=== PATIENT | female | born 1965 | race Caucasian/White ===

== ENCOUNTER 2016-04-02 08:46 | Day surgery (SDC) | payer BC ==
[~2016-04-02] VITALS: Ht 165.1 cm; Wt 89.2 kg
[2016-04-02] VITALS (11 sets, daily range): BP systolic 110–120; BP diastolic 64–72; PULSE 64–88; RESP 12–16; Ht 165.1 cm; Wt 89.2 kg
[~2016-04-02 08:46] MED LIST: CEFAZOLIN 2 GM/50 ML (PMX) 50 ML IVPB ONE; SOD CHLORIDE 0.9% 1,000 ML IV SCH
[2016-04-02] MEDS ORDERED: morphine (1 MG/ML) 10ML SYRINGE IV PRN ×2 (11:00)
[2016-04-02] MEDS ORDERED: DIPHENHYDRAMINE 50 MG INJ IV PRN (11:00)
[2016-04-02] MEDS ORDERED: MEPERIDINE 25 MG INJ IV PRN (11:00)
[2016-04-02] MEDS ORDERED: HYDROmorphONE (0.2 MG/ML) 10ML SYG IV PRN ×2 (11:00)
[2016-04-02] MEDS ORDERED: ONDANSETRON 4 MG INJ IV PRN (11:00)
[2016-04-02] MEDS ORDERED: FENTAnyl 50 MCG/ML VIAL IV PRN (11:00)
[2016-04-02] MEDS ORDERED: MIDAZOLAM 1 MG/ML 2 ML INJ ONE (11:03)
[2016-04-02] MEDS ORDERED: BUPIVACAINE 0.25% (MPF) 10 ML 10 ML VIAL ONE (11:19)
[2016-04-02] MEDS ORDERED: LEVO25TA53 PO (11:25)
[2016-04-02] MEDS ORDERED: METF500T4 PO (11:25)
[2016-04-02] MEDS ORDERED: AMOX1TAB10 PO (11:25)
[2016-04-02] MEDS ORDERED: PROPOFOL 20 ML ONE (11:44)
[2016-04-02] MEDS ORDERED: LIDOCAINE 2% (SDV) 5 ML INJ ONE (11:44)
[2016-04-02] MEDS ORDERED: ONDANSETRON 4 MG INJ ONE ×2 (11:44→12:00)
[2016-04-02] MEDS ORDERED: ROCURONIUM 50 MG INJ ONE (11:44)
[2016-04-02] MEDS ORDERED: CEFAZOLIN 1 GM INJ ONE (12:00)
[2016-04-02] MEDS ORDERED: NEOSTIGMINE 3 MG/3 ML SYRINGE ONE (12:00)
[2016-04-02] MEDS ORDERED: HYDROCODONE/APAP (5/325) TAB PO ONE (12:00)
[2016-04-02] MEDS ORDERED: GLYCOPYRROLATE 1 MG INJ ONE (12:00)
--- NOTE | 2016-04-02 14:27 | OPR ---
DATE OF OPERATION: 04/02/2016 INDICATION: This is a 50-year-old female with symptomatic gallstones. She requests surgical excisi on of her gallbladder. Risks, alternatives, benefits, and personnel were discussed with the patient . Patient expressed understanding and consents to the operation. PREOPERATIVE DIAGNOSIS: Symptomatic gallstones. POSTOPERATIVE DIAGNOSIS: Symptomatic gallstones. OPERATION: Laparoscopic cholecystectomy. SURGEON: MD Meaghan SPECIMENS: Gallbladder. COMPLICATIONS: None. ANESTHESIA: General. PROCEDURE: The patient was taken to the OR and prepped and draped in the usual sterile fashion. Figueroa rgical timeout was performed. IV antibiotics were given. Supraumbilical midline incision is made w ith a 15 blade. Dissection cautery was carried down to the fascia which was divided with curved May o scissors. A 0 Vicryl stitch was placed into the fascia. Balloon Marion trocar is introduced. Pn eumoperitoneum established. Midepigastric 12 mm optical trocar and right upper quadrant and right u pper flank 5 mm optical trocars are placed under direct visualization. Upon initial inspection, the re were some adhesions to the gallbladder. The cystic duct was identified. The critical view was e stablished. The cystic duct and cystic artery were divided using a 35 mm Curtis vascular load stap ler. Additional clips were placed for reinforcement. The gallbladder was taken off the gallbladder bed. There was good hemostasis. Gallbladder was retrieved using EndoCatch bag. There was minimal spillage and suction irrigation was used. Ports were removed under direct visualization, 0 Vicryl U-stitch was tied down. Skin was closed using skin gypsy. Local anesthesia was injected. Dry dr essings were applied. Dictated By: DAXA HUTSON/JOHANA Conf#: [id number] DID#: [id number]
== END 2016-04-02 14:10 | disposition home or self-care (01) ==
LOC: SDS 08:46
PROVIDERS: ATTEND Surgery
DX: K80.10 Calculus of gallbladder with chronic cholecystitis without obstruction (principal); E03.9 Hypothyroidism, unspecified; E11.9 Type 2 diabetes mellitus without complications; E66.01 Morbid (severe) obesity due to excess calories; Z68.32 Body mass index [BMI] 32.0-32.9, adult; E78.5 Hyperlipidemia, unspecified
CPT/HCPCS: 47562; 82962; 84703; 88304; J0690; J1170; J2175; J2250; J2405; J2710; J3010; Z7512; Z7610

== ENCOUNTER 2016-08-02 08:25 | Observation (INO) | payer BC ==
[~2016-08-02] VITALS: Ht 165.1 cm; Wt 90.0 kg
[2016-08-02] VITALS (38 sets, daily range): BP systolic 89–131; BP diastolic 48–81; PULSE 60–100; RESP 11–23; Ht 165.1 cm; Wt 90.0 kg
[~2016-08-02 08:25] MED LIST changes: +AMOX1TAB10 PO; -CEFAZOLIN 2 GM/50 ML (PMX) 50 ML IVPB ONE; +LEVO25TA53 PO; +METF500T4 PO; -SOD CHLORIDE 0.9% 1,000 ML IV SCH
[2016-08-02] MEDS ORDERED: METF500T4 PO (09:01)
[2016-08-02] MEDS ORDERED: SOD CHLORIDE 0.9% 1,000 ML IV ONE (09:30)
[2016-08-02] MEDS ORDERED: CEFAZOLIN 2 GM/50 ML (PMX) 50 ML IVPB ONE (09:30)
[2016-08-02] MEDS ORDERED: BUPIVACAINE 0.25% (MPF) 30 ML INJ ONE (13:25)
[2016-08-02] MEDS ORDERED: FENTAnyl 50 MCG/ML VIAL ONE (13:36)
[2016-08-02] MEDS ORDERED: MIDAZOLAM 1 MG/ML 2 ML INJ ONE (13:36)
[2016-08-02] MEDS ORDERED: ROCURONIUM 50 MG INJ ONE ×2 (13:36→14:34)
[2016-08-02] MEDS ORDERED: SUCCINYLCHOLINE CHLORIDE 100 MG/5 ML SYG IV ONE (13:36)
[2016-08-02] MEDS ORDERED: LIDOCAINE 2% (SDV) 5 ML INJ ONE (13:36)
[2016-08-02] MEDS ORDERED: PROPOFOL 20 ML ONE (13:36)
[2016-08-02] MEDS ORDERED: ONDANSETRON 4 MG INJ ONE (13:47)
[2016-08-02] MEDS ORDERED: FAMOTIDINE 20 MG INJ ONE (13:47)
[2016-08-02] MEDS ORDERED: CEFAZOLIN 1 GM INJ ONE (13:52)
[2016-08-02] MEDS ORDERED: DIPHENHYDRAMINE 50 MG INJ IV PRN ×2 (14:00→15:00)
[2016-08-02] MEDS ORDERED: PROCHLORPERAZINE 10 MG INJ IV PRN (14:00)
[2016-08-02] MEDS ORDERED: MEPERIDINE 25 MG INJ IV PRN (14:00)
[2016-08-02] MEDS ORDERED: ONDANSETRON 4 MG INJ IV PRN (14:00)
[2016-08-02] MEDS ORDERED: OXYCODONE/ACETAMINOPHEN (5/325) TAB PO PRN (14:00)
[2016-08-02] MEDS ORDERED: FENTAnyl 50 MCG/ML VIAL IV PRN (14:00)
[2016-08-02] MEDS ORDERED: HYDROmorphONE (0.2 MG/ML) 10ML SYG IV PRN (14:00)
[2016-08-02] MEDS ORDERED: NEOSTIGMINE 3 MG/3 ML SYRINGE ONE ×2 (14:16→14:49)
[2016-08-02] MEDS ORDERED: GLYCOPYRROLATE 0.4 MG INJ ONE (14:16)
[2016-08-02] MEDS ORDERED: HYDROmorphONE 2 MG/ML SYG ONE (14:35)
[2016-08-02] MEDS: SOD CHLORIDE 0.9% 1,000 ML IV SCH ×2 (14:59→22:26)
--- NOTE | 2016-08-02 14:59 | OPR ---
Date/Time of Note Date/Time of Note DATE: 08/02/16 TIME: 14:58 Operative Report Procedure Date: Aug 02, 2016 Preoperative Diagnosis recurrent incarcerated incisional hernia Postoperative Diagnosis same Operation Performed incarcerated recurrent incisional hernia repair intraabdominal mesh implantation omental harvest localized adjacent tissue transfer with the use of skin flaps 76 sq cm defect Ashley PEREIRA Aug 02, 2016 14:59
[2016-08-02] MEDS ORDERED: HYDROmorphONE 1 MG/ML SYG IV PRN ×2 (15:00)
[2016-08-02] MEDS ORDERED: NALOXONE (0.4 MG/ML) INJ IV PRN (15:00)
[2016-08-02] MEDS ORDERED: HYDROCODONE/APAP (5/325) TAB PO PRN (15:00)
--- NOTE | 2016-08-02 15:35 | OPR ---
DATE OF OPERATION: 08/02/2016 INDICATION: This is a 51-year-old female with a recurrent incarcerated incisional hernia. She requ ests surgical repair. Risks, alternatives, benefits of the procedure were discussed with the patien t. Patient expressed understanding and consents to the operation. PREOPERATIVE DIAGNOSIS: Recurrent incarcerated incisional hernia. POSTOPERATIVE DIAGNOSIS: Recurrent incarcerated incisional hernia. OPERATION PERFORMED: 1. Recurrent incarcerated incisional [place] [address]. 2. Implantation of mesh. CPT code 62660. 3. Omental flap intra-abdominal, CPT codes 563480. 4. Localized adjacent tissue transfer with the use of skin flaps of 72 square cm defect. SURGEON: Edward Harding MD SPECIMEN: Excess skin and hernia sac contents. COMPLICATIONS: None. ANESTHESIA: General. PROCEDURE: The patient was taken to the OR and prepped and draped in the usual sterile fashion. Figueroa rgical timeout was performed. IV antibiotics were given. An elliptical incision was made with a 10 blade over the prior cicatrix. Dissection cautery was carried down to the hernia. There was a lar ge hernia sac which was also resected. The incarcerated hernia was then reduced. Large hernia defe ct was identified. There was lysis of adhesions from the intraabdominal area around the hernia as i t showed chronic inflammation and adhesive response. The fascial edges were freed up approximately 4 to 5 cm in all directions. A piece of omentum was then plicated to the anterior abdominal wall to prevent any kind of bowel intrusion into the hernia defect with interrupted 3-0 Vicryl. An underla y mesh with 15 x [address] mesh was fashioned, first sized with approximately 4 to 5 cm o f underlay coverage in all directions. This was secured in place with interrupted #1 Prolene in all directions circumferentially around the hernia defect. The fascial edges were then reapproximated with 0 PDS loop from superior to inferior and inferior to superior enclosed in the midline. The wou nd was irrigated with irrigation and Betadine. Due to the large tissue defect, multilayer closure w ith interrupted 3-0 Vicryl and skin gypsy was performed to close the large hernia skin sac defect that was formed from the resection. Local anesthesia was injected and dry dressings were applied. Dictated By: EDWARD HARDING MD SB/JOHANA Conf#: [id number] [facility]#: [id number]
[2016-08-02] MEDS: HYDROmorphONE 0.2 MG/ML PCA IV SCH (15:58)
[2016-08-02] MEDS: CEFAZOLIN 2 GM/50 ML (PMX) 50 ML IVPB SCH ×2 (16:00→22:26)
[2016-08-02 16:42] LABS: ADD SCAN DIFF NO
[2016-08-02 16:45] LABS: BASOPHILS % 0.3 % (0.0-2.0); EOSINOPHILS # 0.1 10^3/ul (0.0-0.5); EOSINOPHILS % 0.9 % (0.0-7.0); HEMATOCRIT 35.6 % (37.0-47.0); HEMOGLOBIN 11.5 g/dl (12.0-16.0); LYMPHOCYTES # 1.7 10^3/ul (0.8-2.9); LYMPHOCYTES % 14.8 % (15.0-51.0); MEAN CORPUSCULAR HEMOGLOBIN 24.4 pg (29.0-33.0); MEAN CORPUSCULAR HGB CONC 32.3 g/dl (32.0-37.0); MEAN CORPUSCULAR VOLUME 75.4 fl (82.0-101.0); MEAN PLATELET VOLUME 10.4 fl (7.4-10.4); MONOCYTE # 0.4 10^3/ul (0.3-0.9); MONOCYTES % 3.9 % (0.0-11.0); NEUTROPHILS % 79.7 % (39.0-77.0); PLATELET COUNT 245 10^3/UL (140-415); RED BLOOD COUNT 4.72 10^6/ul (4.20-5.40); RED CELL DISTRIBUTION WIDTH 12.8 % (11.5-14.5); WHITE BLOOD COUNT 11.3 10^3/ul (4.8-10.8)
[2016-08-02] MEDS ORDERED: DEXTROSE 50% 50 ML SYRINGE IV PRN ×2 (17:00)
[2016-08-02] MEDS ORDERED: GLUCOSE GEL 15 GRAM TUBE BUCCAL PRN (17:00)
[2016-08-02] MEDS ORDERED: GLUCAGON 1 MG INJ IM PRN (17:00)
[2016-08-02] MEDS ORDERED: GLUCOSE GEL 15 GRAM TUBE PO PRN ×2 (17:00)
[2016-08-02] MEDS ORDERED: INSULIN ASPART [NOVOLOG] 3 ML PEN SC SCH (17:00)
[2016-08-02 17:06] LABS: ALBUMIN 3.9 g/dl (3.3-4.9); ALBUMIN/GLOBULIN RATIO 1.77; BILIRUBIN,INDIRECT 0.1 mg/dl (0-1.1); BILIRUBIN,TOTAL 0.1 mg/dl (0.2-1.3); CREATININE 0.44 mg/dl (0.44-1.00); POTASSIUM 3.8 mmol/L (3.5-5.1); TOTAL PROTEIN 6.1 g/dl (6.1-8.1)
[2016-08-02 17:09] LABS: CALCIUM 8.1 mg/dl (8.4-10.2)
--- NOTE | 2016-08-02 17:34 | HP ---
DATE OF ADMISSION: 08/02/2016 HISTORY OF PRESENT ILLNESS: The patient is a 51-year-old female with past medical history positive for diabetes and hypothyroidism. The patient was diagnosed with recurrent incarcerated incisional h ernia. The patient was seeing Dr. Harding as an outpatient and patient was brought to the hospital and underwent recurrent incarcerated incisional hernia repair with implantation of mesh. Postoperative ly, the patient is lethargic and cannot provide detailed medical history. The patient is arousable, alert to name and situation. Patient also complains of significant abdominal pain and the patient will be admitted for further evaluation and management. PAST MEDICAL HISTORY: Positive for diabetes and hypothyroidism. PAST SURGICAL HISTORY: Patient is status post laparoscopic cholecystectomy in 03/2016. SOCIAL HISTORY: Patient lives at home with her family, patient denies any tobacco use, denies any a lcohol use and denies any illicit drug use. FAMILY HISTORY: Noncontributory. ALLERGIES: PATIENT HAS NO KNOWN ALLERGIES. HOME MEDICATIONS: 1. Synthroid. 2. Metformin. REVIEW OF SYSTEMS: A 12-point review of systems is negative unless mentioned in the HPI. PHYSICAL ASSESSMENT GENERAL: Well-developed, well-nourished female currently lethargic but easily arousable. Complains of incisional pain. VITAL SIGNS: Temperature is 97.6, pulse is 75, blood pressure 117/66, respiratory rate 16, oxygen s aturation 98% on room air. HEENT: Head is atraumatic, normocephalic. Pupils equal, round, reactive to light and accommodation . Oral mucosa is pink and moist. NECK: Supple, no cervical lymphadenopathy, no thyromegaly. CHEST: Lungs clear bilaterally. No rhonchi, wheezes, rales noted. CARDIOVASCULAR: Normal S1, S2. Regular rhythm and rate. No murmurs, gallops, clicks, rubs noted. ABDOMEN: Status post surgery with intact surgical incision, hypoactive bowel sounds. EXTREMITIES: No edema, clubbing, cyanosis. Pulses equal bilaterally 2+. SKIN: There is no rash, petechiae noted. NEUROLOGIC: Patient is alert to name and situation, moves all extremities. LABORATORY DATA: The patient's glucose is 181. ASSESSMENT AND PLAN: 1. Recurrent incarcerated incisional hernia, status post repair with implantation of mesh. 2. I will continue postoperative antibiotics. Continue [place] and Toradol p.r.n. for pain and Zofra n p.r.n. for nausea. Patient will be also be placed on COMPUTING ARCHITECT Dilaudid. Continue IV fluids. Monitor electrolytes. Continue incentive spirometer q.1h while the patient is awake. Will follow up surgic al recommendation. 3. Diabetes mellitus. Will continue NovoLog per mild algorithm sliding scale. 4. Levothyroxine. Will continue Synthroid. 5. Obesity with BMI of 33. Continue sequential compression device for deep venous thrombosis proph ylaxis. Further recommendations based on clinical course. Plan of care discussed with Dr. Walker . . Dictated By: FORREST LOU CREW FOREMAN for LIONEL WALKER MD SR/NTS Conf#: [id number] DID#: [id number]
[2016-08-02] MEDS: ONDANSETRON 4 MG INJ IV PRN (18:24)
[2016-08-02] MEDS: Insulin NOVOLOG SS MILD Algorithm (NPO/TPN/ENTERAL FEEDS) SC SCH ×2 (22:46→22:48)
[2016-08-02] MEDS: metFORMIN 500 MG TAB PO SCH (22:49)
[2016-08-03 00:21] VITALS: BP 109/60; RESP 18
[2016-08-03] MEDS: Insulin NOVOLOG SS MILD Algorithm (NPO/TPN/ENTERAL FEEDS) SC SCH ×4 (01:11→12:28)
[2016-08-03] MEDS: ONDANSETRON 4 MG INJ IV PRN ×2 (01:15→17:25)
[2016-08-03 04:30] VITALS: BP 113/61; PULSE 86; RESP 18
[2016-08-03 05:38] LABS: ADD SCAN DIFF NO
[2016-08-03 05:40] LABS: BASOPHILS % 0.3 % (0.0-2.0); EOSINOPHILS % 0.1 % (0.0-7.0); HEMATOCRIT 36.1 % (37.0-47.0); HEMOGLOBIN 11.5 g/dl (12.0-16.0); LYMPHOCYTES % 11.4 % (15.0-51.0); MEAN CORPUSCULAR HEMOGLOBIN 24.2 pg (29.0-33.0); MEAN CORPUSCULAR HGB CONC 31.9 g/dl (32.0-37.0); MEAN PLATELET VOLUME 10.7 fl (7.4-10.4); MONOCYTE # 0.5 10^3/ul (0.3-0.9); MONOCYTES % 5.4 % (0.0-11.0); NEUTROPHIL # 7.2 10^3/ul (1.6-7.5); NEUTROPHILS % 82.3 % (39.0-77.0); PLATELET COUNT 262 10^3/UL (140-415); RED BLOOD COUNT 4.75 10^6/ul (4.20-5.40); RED CELL DISTRIBUTION WIDTH 12.9 % (11.5-14.5); WHITE BLOOD COUNT 8.8 10^3/ul (4.8-10.8)
[2016-08-03 06:16] LABS: ALBUMIN 4.1 g/dl (3.3-4.9); ALBUMIN/GLOBULIN RATIO 1.64; BILIRUBIN,INDIRECT 0.4 mg/dl (0-1.1); BILIRUBIN,TOTAL 0.4 mg/dl (0.2-1.3); CALCIUM 8.7 mg/dl (8.4-10.2); CREATININE 0.43 mg/dl (0.44-1.00); POTASSIUM 4.1 mmol/L (3.5-5.1); TOTAL PROTEIN 6.6 g/dl (6.1-8.1)
[2016-08-03] MEDS: LEVOTHYROXINE 25 MCG TAB PO SCH (06:17)
[2016-08-03] MEDS: CEFAZOLIN 2 GM/50 ML (PMX) 50 ML IVPB SCH (06:17)
[2016-08-03] MEDS: metFORMIN 500 MG TAB PO SCH ×2 (07:50→17:25)
[2016-08-03 07:51] VITALS: BP 108/62; RESP 19
[2016-08-03] MEDS: SOD CHLORIDE 0.9% 1,000 ML IV SCH ×2 (12:11→21:57)
[2016-08-03] MEDS: HYDROmorphONE 0.2 MG/ML PCA IV SCH (12:26)
--- NOTE | 2016-08-03 14:26 | PN ---
Date/Time of Note Date/Time of Note DATE: 08/03/16 TIME: 14:25 Assessment/Plan VTE Prophylaxis VTE Prophylaxis Intervention: SCD's Lines/Catheters [facility] Peripheral IV Urinary Cath still in place: No Assessment/Plan Chief Complaint/Hosp Course s/p open incisional hernia Problems: Assessment/Plan d/c today or tomorrow Subjective 24 Hr Interval Summary Free Text/Dictation some emesis yesterday no issues today Exam/Review of Systems Vital Signs Vitals Vital Signs Date Time Temp Pulse Resp B/P Pulse Ox O2 Delivery O2 Flow Rate FiO2 08/03/16 08:00 Nasal Cannula 2.0 08/03/16 07:51 98.5 79 19 108/62 99 Intake and Output 08/02/16 08/02/16 08/03/16 15:00 23:00 07:00 Intake Total 1770 ml 630 ml Output Total 670 ml 800 ml Balance 1100 ml -170 ml Exam c/d/i Results Result Diagram: 08/03/16 0453 08/03/16 0453 Results 24 hrs Laboratory Tests Test 08/02/16 15:20 08/02/16 16:35 08/02/16 21:06 08/02/16 22:36 Bedside Glucose 181 211 235 H White Blood Count 11.3 H Red Blood Count 4.72 Hemoglobin 11.5 L Hematocrit 35.6 L Mean Corpuscular Volume 75.4 L Mean Corpuscular Hemoglobin 24.4 L Mean Corpuscular Hemoglobin Concent 32.3 Red Cell Distribution Width 12.8 Platelet Count 245 Mean Platelet Volume 10.4 Neutrophils % 79.7 H Lymphocytes % 14.8 L Monocytes % 3.9 Eosinophils % 0.9 Basophils % 0.3 Nucleated Red Blood Cells % 0.0 Neutrophils # 9.0 H Lymphocytes # 1.7 Monocytes # 0.4 Eosinophils # 0.1 Basophils # 0.0 Nucleated Red Blood Cells # 0.0 Sodium Level 141 Potassium Level 3.8 Chloride Level 109 Carbon Dioxide Level 25 Anion Gap 11 Blood Urea Nitrogen 10 Creatinine 0.44 Glucose Level 213 Calcium Level 8.1 L Total Bilirubin 0.1 L Direct Bilirubin 0.00 Indirect Bilirubin 0.1 Aspartate Amino Transf (AST/SGOT) 38 Alanine Aminotransferase (ALT/SGPT) 60 Alkaline Phosphatase 79 Total Protein 6.1 Albumin 3.9 Globulin 2.20 Albumin/Globulin Ratio 1.77 Test 08/03/16 01:05 08/03/16 04:46 08/03/16 04:53 08/03/16 08:24 Bedside Glucose 205 165 167 White Blood Count 8.8 # Red Blood Count 4.75 Hemoglobin 11.5 L Hematocrit 36.1 L Mean Corpuscular Volume 76.0 L Mean Corpuscular Hemoglobin 24.2 L Mean Corpuscular Hemoglobin Concent 31.9 L Red Cell Distribution Width 12.9 Platelet Count 262 Mean Platelet Volume 10.7 H Neutrophils % 82.3 H Lymphocytes % 11.4 L Monocytes % 5.4 Eosinophils % 0.1 Basophils % 0.3 Nucleated Red Blood Cells % 0.0 Neutrophils # 7.2 Lymphocytes # 1.0 Monocytes # 0.5 Eosinophils # 0.0 Basophils # 0.0 Nucleated Red Blood Cells # 0.0 Sodium Level 142 Potassium Level 4.1 Chloride Level 105 Carbon Dioxide Level 26 Anion Gap 15 Blood Urea Nitrogen 7 Creatinine 0.43 L Glucose Level 158 Hemoglobin A1c 9.4 H Calcium Level 8.7 Total Bilirubin 0.4 Direct Bilirubin 0.00 Indirect Bilirubin 0.4 Aspartate Amino Transf (AST/SGOT) 39 Alanine Aminotransferase (ALT/SGPT) 62 Alkaline Phosphatase 72 Total Protein 6.6 Albumin 4.1 Globulin 2.50 Albumin/Globulin Ratio 1.64 Test 08/03/16 12:07 Bedside Glucose 187 Medications Medications Current Medications Naloxone HCl (Narcan) 0.2 mg PRN PRN IV DECREASED REPIRATORY RATE; Start at 15:00 Hydromorphone HCl (Dilaudid EMS COORDINATOR) Q4PCA IV Last administered on 08/03/16 12:26 ; Admin Dose 6 MG; Start 08/02/16 at 15:00 Hydromorphone HCl (Dilaudid) 0.4 mg Q4H PRN IV PAIN LEVEL 1-5; Start 08/02/16 at 15:00 Hydromorphone HCl (Dilaudid) 0.6 mg Q4H PRN IV PAIN LEVEL 6-10; Start 08/02/16 at 15:00 Ondansetron HCl (Zofran Inj) 4 mg Q6H PRN IV NAUSEA AND/OR VOMITING Last administered on 08/03/16 01:15; Admin Dose 4 MG; Start 08/02/16 at 15:00 Diphenhydramine HCl 25 mg 25 mg Q6H PRN IV ITCHING; Start 08/02/16 at 15:00 Cefazolin Sodium/ Dextrose (Ancef 2 Gm/50 ml (Pmx)) 50 ml @ 100 mls/hr Q8H IVPB Last administered on 08/03/16 06:17; Admin Dose 100 MLS/HR; Start 08/02/16 at 15:00; Stop 08/03/16 at 14:59 Acetaminophen/ Hydrocodone Bitart ([place] (5/325)) 1 tab Q6H PRN PO PAIN LEVEL 6 -10; Start 08/02/16 at 15:00 Ketorolac Tromethamine 30 mg 30 mg Q6H PRN IV PAIN; Start 08/02/16 at 15:00; Stop 08/05/16 at 14:59 Sodium Chloride (NS) 1,000 ml @ 100 mls/hr Q10H IV Last administered on 12:11; Admin Dose 100 MLS/HR; Start 08/02/16 at 14:59 Miscellaneous Information 1 ea NOTE XX ; Start 08/02/16 at 17:00 Glucose (Glutose) 15 gm Q15M PRN PO DECREASED GLUCOSE; Start 08/02/16 at 17:00 Glucose (Glutose) 22.5 gm Q15M PRN PO DECREASED GLUCOSE; Start 08/02/16 at 17:00 Dextrose (D50w Syringe) 25 ml Q15M PRN IV DECREASED GLUCOSE; Start 08/02/16 at 17:00 Dextrose (D50w Syringe) 50 ml Q15M PRN IV DECREASED GLUCOSE; Start 08/02/16 at 17:00 Glucagon (Glucagen) 1 mg Q15M PRN IM DECREASED GLUCOSE; Start 08/02/16 at 17:00 Glucose (Glutose) 15 gm Q15M PRN BUCCAL DECREASED GLUCOSE; Start 08/02/16 at 17: 00 Ashley PEREIRA Aug 03, 2016 14:26
[2016-08-03] MEDS ORDERED: INSULIN ASPART [NOVOLOG] 3 ML PEN SC SCH (17:25)
[2016-08-03] MEDS: Insulin NOVOLOG SS MILD Algorithm (SS with meals and bedtime) SC SCH ×2 (17:50→20:44)
--- NOTE | 2016-08-03 18:10 | PN ---
Date/Time of Note Date/Time of Note DATE: 08/03/16 TIME: 18:06 Assessment/Plan VTE Prophylaxis VTE Prophylaxis Intervention: SCD's Lines/Catheters IV Catheter Type (from Nrs): Peripheral IV Urinary Cath still in place: No Assessment/Plan Chief Complaint/Hosp Course Patient's complaint of nausea, pain is well controlled. ROD PILER Dilaudid discontinue. Continue as needed pain medication Zofran for nausea. ASSESSMENT AND PLAN: - Recurrent incarcerated incisional hernia, status post repair with implantation of mesh. - Poorly controlled diabetes mellitus. Hemoglobin A1c is 9.4. Continue metformin and NovoLog as needed. - Levothyroxine. Continue Synthroid. - Obesity with BMI of 33. Continue sequential compression device for deep venous thrombosis prophylaxis. Further recommendations based on clinical course. Plan of care discussed with Dr. Walker. . Problems: Exam/Review of Systems Vital Signs Vitals Vital Signs Date Time Temp Pulse Resp B/P Pulse Ox O2 Delivery O2 Flow Rate FiO2 08/03/16 13:00 18 08/03/16 08:00 Nasal Cannula 2.0 08/03/16 07:51 98.5 79 108/62 99 Intake and Output 08/02/16 08/02/16 08/03/16 15:00 23:00 07:00 Intake Total 1770 ml 630 ml Output Total 670 ml 800 ml Balance 1100 ml -170 ml Exam Constitutional: alert Head: normocephalic Neck: supple Respiratory: normal air movement Cardiovascular: nl pulses Gastrointestinal: other (Status post surgery), soft Extremities: normal pulses Results Result Diagram: 08/03/16 0453 08/03/16 0453 Results 24 hrs Laboratory Tests Test 08/02/16 21:06 08/02/16 22:36 08/03/16 01:05 08/03/16 04:46 Bedside Glucose 211 235 H 205 165 Test 08/03/16 04:53 08/03/16 08:24 08/03/16 12:07 08/03/16 17:11 White Blood Count 8.8 # Red Blood Count 4.75 Hemoglobin 11.5 L Hematocrit 36.1 L Mean Corpuscular Volume 76.0 L Mean Corpuscular Hemoglobin 24.2 L Mean Corpuscular Hemoglobin Concent 31.9 L Red Cell Distribution Width 12.9 Platelet Count 262 Mean Platelet Volume 10.7 H Neutrophils % 82.3 H Lymphocytes % 11.4 L Monocytes % 5.4 Eosinophils % 0.1 Basophils % 0.3 Nucleated Red Blood Cells % 0.0 Neutrophils # 7.2 Lymphocytes # 1.0 Monocytes # 0.5 Eosinophils # 0.0 Basophils # 0.0 Nucleated Red Blood Cells # 0.0 Sodium Level 142 Potassium Level 4.1 Chloride Level 105 Carbon Dioxide Level 26 Anion Gap 15 Blood Urea Nitrogen 7 Creatinine 0.43 L Glucose Level 158 Hemoglobin A1c 9.4 H Calcium Level 8.7 Total Bilirubin 0.4 Direct Bilirubin 0.00 Indirect Bilirubin 0.4 Aspartate Amino Transf (AST/SGOT) 39 Alanine Aminotransferase (ALT/SGPT) 62 Alkaline Phosphatase 72 Total Protein 6.6 Albumin 4.1 Globulin 2.50 Albumin/Globulin Ratio 1.64 Bedside Glucose 167 187 155 Medications Medications Current Medications Naloxone HCl (Narcan) 0.2 mg PRN PRN IV DECREASED REPIRATORY RATE; Start at 15:00 Hydromorphone HCl (Dilaudid ROD PILER) Q4PCA IV Last administered on 08/03/16 12:26 ; Admin Dose 6 MG; Start 08/02/16 at 15:00 Hydromorphone HCl (Dilaudid) 0.4 mg Q4H PRN IV PAIN LEVEL 1-5; Start 08/02/16 at 15:00 Hydromorphone HCl (Dilaudid) 0.6 mg Q4H PRN IV PAIN LEVEL 6-10; Start 08/02/16 at 15:00 Ondansetron HCl (Zofran Inj) 4 mg Q6H PRN IV NAUSEA AND/OR VOMITING Last administered on 08/03/16 17:25; Admin Dose 4 MG; Start 08/02/16 at 15:00 Diphenhydramine HCl (Benadryl) 25 mg Q6H PRN IV ITCHING; Start 08/02/16 at 15:00 Acetaminophen/ Hydrocodone Bitart ([place] (5/325)) 1 tab Q6H PRN PO PAIN LEVEL 6 -10; Start 08/02/16 at 15:00 Ketorolac Tromethamine 30 mg 30 mg Q6H PRN IV PAIN; Start 08/02/16 at 15:00; Stop 08/05/16 at 14:59 Sodium Chloride (NS) 1,000 ml @ 100 mls/hr Q10H IV Last administered on t 12:11; Admin Dose 100 MLS/HR; Start 08/02/16 at 14:59 Miscellaneous Information 1 ea NOTE XX ; Start 08/02/16 at 17:00 Glucose (Glutose) 15 gm Q15M PRN PO DECREASED GLUCOSE; Start 08/02/16 at 17:00 Glucose (Glutose) 22.5 gm Q15M PRN PO DECREASED GLUCOSE; Start 08/02/16 at 17:00 Dextrose (D50w Syringe) 25 ml Q15M PRN IV DECREASED GLUCOSE; Start 08/02/16 at 17:00 Dextrose (D50w Syringe) 50 ml Q15M PRN IV DECREASED GLUCOSE; Start 08/02/16 at 17:00 Glucagon (Glucagen) 1 mg Q15M PRN IM DECREASED GLUCOSE; Start 08/02/16 at 17:00 Glucose (Glutose) 15 gm Q15M PRN BUCCAL DECREASED GLUCOSE; Start 08/02/16 at 17: 00 FORREST LOU Aug 03, 2016 18:10
[2016-08-03 21:19] VITALS: BP 133/67; RESP 20
[2016-08-03] MEDS: KETOROLAC 30 MG INJ IV PRN (22:06)
[2016-08-04] MEDS: CEPASTAT LOZENGE MT PRN ×3 (00:45→11:13)
[2016-08-04 05:22] LABS: ADD SCAN DIFF NO
[2016-08-04 05:28] LABS: BASOPHILS % 0.7 % (0.0-2.0); EOSINOPHILS # 0.1 10^3/ul (0.0-0.5); EOSINOPHILS % 1.2 % (0.0-7.0); HEMATOCRIT 35.5 % (37.0-47.0); HEMOGLOBIN 11.1 g/dl (12.0-16.0); LYMPHOCYTES # 1.5 10^3/ul (0.8-2.9); LYMPHOCYTES % 26.6 % (15.0-51.0); MEAN CORPUSCULAR HGB CONC 31.3 g/dl (32.0-37.0); MEAN CORPUSCULAR VOLUME 76.7 fl (82.0-101.0); MEAN PLATELET VOLUME 10.8 fl (7.4-10.4); MONOCYTE # 0.5 10^3/ul (0.3-0.9); MONOCYTES % 7.8 % (0.0-11.0); NEUTROPHIL # 3.7 10^3/ul (1.6-7.5); NEUTROPHILS % 63.5 % (39.0-77.0); PLATELET COUNT 239 10^3/UL (140-415); RED BLOOD COUNT 4.63 10^6/ul (4.20-5.40); RED CELL DISTRIBUTION WIDTH 13.1 % (11.5-14.5); WHITE BLOOD COUNT 5.8 10^3/ul (4.8-10.8)
[2016-08-04 05:47] LABS: CALCIUM 8.4 mg/dl (8.4-10.2); CREATININE 0.51 mg/dl (0.44-1.00); POTASSIUM 3.4 mmol/L (3.5-5.1)
[2016-08-04] MEDS: LEVOTHYROXINE 25 MCG TAB PO SCH (06:11)
[2016-08-04] MEDS: SOD CHLORIDE 0.9% 1,000 ML IV SCH (06:59)
--- NOTE | 2016-08-04 08:40 | PN ---
Date/Time of Note Date/Time of Note DATE: 08/04/16 TIME: 08:39 Assessment/Plan VTE Prophylaxis VTE Prophylaxis Intervention: SCD's Lines/Catheters IV Catheter Type (from Nrs): Peripheral IV Urinary Cath still in place: No Assessment/Plan Chief Complaint/Hosp Course s/p open incisional hernia Problems: Assessment/Plan doing well dc home Subjective 24 Hr Interval Summary Free Text/Dictation no issues, tolerating diet Exam/Review of Systems Vital Signs Vitals Vital Signs Date Time Temp Pulse Resp B/P Pulse Ox O2 Delivery O2 Flow Rate FiO2 08/03/16 21:19 98.9 82 20 133/67 96 08/03/16 20:00 Nasal Cannula 2.0 Intake and Output 08/03/16 08/03/16 08/04/16 15:00 23:00 07:00 Intake Total 2950 ml 1750 ml Output Total 500 ml 1550 ml Balance 2450 ml 200 ml Exam intact dressing Results Result Diagram: 08/04/16 0410 08/04/16 0410 Results 24 hrs Laboratory Tests Test 08/03/16 12:07 08/03/16 17:11 08/03/16 20:40 08/04/16 04:10 Bedside Glucose 187 155 153 White Blood Count 5.8 # Red Blood Count 4.63 Hemoglobin 11.1 L Hematocrit 35.5 L Mean Corpuscular Volume 76.7 L Mean Corpuscular Hemoglobin 24.0 L Mean Corpuscular Hemoglobin Concent 31.3 L Red Cell Distribution Width 13.1 Platelet Count 239 Mean Platelet Volume 10.8 H Neutrophils % 63.5 Lymphocytes % 26.6 Monocytes % 7.8 Eosinophils % 1.2 Basophils % 0.7 Nucleated Red Blood Cells % 0.0 Neutrophils # 3.7 Lymphocytes # 1.5 Monocytes # 0.5 Eosinophils # 0.1 Basophils # 0.0 Nucleated Red Blood Cells # 0.0 Sodium Level 144 Potassium Level 3.4 L Chloride Level 108 Carbon Dioxide Level 29 Anion Gap 10 # Blood Urea Nitrogen 6 L Creatinine 0.51 Glucose Level 124 Calcium Level 8.4 Test 08/04/16 06:02 08/04/16 08:23 Lab Scanned Report LAB Bedside Glucose 168 Medications Medications Current Medications Naloxone HCl (Narcan) 0.2 mg PRN PRN IV DECREASED REPIRATORY RATE; Start at 15:00 Hydromorphone HCl (Dilaudid) 0.4 mg Q4H PRN IV PAIN LEVEL 1-5; Start 08/02/16 at 15:00 Hydromorphone HCl (Dilaudid) 0.6 mg Q4H PRN IV PAIN LEVEL 6-10; Start 08/02/16 at 15:00 Ondansetron HCl (Zofran Inj) 4 mg Q6H PRN IV NAUSEA AND/OR VOMITING Last administered on 08/03/16 17:25; Admin Dose 4 MG; Start 08/02/16 at 15:00 Diphenhydramine HCl (Benadryl) 25 mg Q6H PRN IV ITCHING; Start 08/02/16 at 15:00 Acetaminophen/ Hydrocodone Bitart ([place] (5/325)) 1 tab Q6H PRN PO PAIN LEVEL 6 -10 Last administered on 08/03/16 20:50; Admin Dose 1 TAB; Start 08/02/16 at 15: 00 Ketorolac Tromethamine 30 mg 30 mg Q6H PRN IV PAIN Last administered on 22:06; Admin Dose 30 MG; Start 08/02/16 at 15:00; Stop 08/05/16 at 14:59 Sodium Chloride (NS) 1,000 ml @ 100 mls/hr Q10H IV Last administered on 21:57; Admin Dose 100 MLS/HR; Start 08/02/16 at 14:59 Miscellaneous Information 1 ea NOTE XX ; Start 08/02/16 at 17:00 Glucose (Glutose) 15 gm Q15M PRN PO DECREASED GLUCOSE; Start 08/02/16 at 17:00 Glucose (Glutose) 22.5 gm Q15M PRN PO DECREASED GLUCOSE; Start 08/02/16 at 17:00 Dextrose (D50w Syringe) 25 ml Q15M PRN IV DECREASED GLUCOSE; Start 08/02/16 at 17:00 Dextrose (D50w Syringe) 50 ml Q15M PRN IV DECREASED GLUCOSE; Start 08/02/16 at 17:00 Glucagon (Glucagen) 1 mg Q15M PRN IM DECREASED GLUCOSE; Start 08/02/16 at 17:00 Glucose (Glutose) 15 gm Q15M PRN BUCCAL DECREASED GLUCOSE; Start 08/02/16 at 17: 00 Phenol (Cepastat Lozenge) 1 lozenge Q2H PRN MT SORE THROAT Last administered on 08/04/16t 06:13; Admin Dose 1 LOZENGE; Start 08/04/16 at 00:30 Ashley PEREIRA Aug 04, 2016 08:40
[2016-08-04 08:58] VITALS: BP 121/64; RESP 18
[2016-08-04] MEDS: metFORMIN 500 MG TAB PO SCH (09:05)
[2016-08-04] MEDS: Insulin NOVOLOG SS MILD Algorithm (SS with meals and bedtime) SC SCH ×2 (09:07→12:58)
[2016-08-04] MEDS: KETOROLAC 30 MG INJ IV PRN (11:07)
[2016-08-04] MEDS ORDERED: POTASSIUM CHLORIDE 20 MEQ POWDER FOR ORAL SOLN PO ONE (14:30)
[2016-08-04] MEDS ORDERED: METF1000 PO (14:46)
[2016-08-04] MEDS ORDERED: HYDR-3498 PO (14:51)
--- NOTE | 2016-08-08 22:42 | DS ---
DATE OF ADMISSION: 08/02/2016 DATE OF DISCHARGE: 08/04/2016 FINAL DIAGNOSES: 1. Recurrent incarcerated incisional hernia, status post repair with implantation of mesh. 2. Poorly controlled diabetes mellitus type 2. 3. Hypothyroidism. 4. Obesity. HOSPITAL COURSE: The patient is a 51-year-old female with past medical history positive for diabete s, hypothyroidism. The patient was diagnosed with recurrent incarcerated incisional hernia and was seen by Dr. Harding as an outpatient. The patient was brought to the hospital and underwent hernia repa ir with implantation of mesh. Postoperatively, patient was experiencing significant pain and nausea and patient was admitted for further evaluation and management. The patient was started on CLERK OF SCALES Dil audid for pain and was also given [place] and Toradol for pain and Zofran p.r.n. for nausea. Subseque ntly, patient controlled analgesia was discontinued and patient was given [place] and Dilaudid p.r.n. for pain. The patient continued on Synthroid for hypothyroidism. The patient's hemoglobin A1c was checked and was 9.4. The patient was given NovoLog per mild algorithm sliding scale in addition to metformin for blood sugar control. The patient's condition improved and the patient was discharged home. CONDITION ON DISCHARGE: Hemodynamically stable. ACTIVITY: No lifting more than 25 pounds for 6 weeks. DIET: 1800 ADA diet. DISCHARGE MEDICATIONS: 1. The patient is given prescription for [place] p.r.n. for pain. 2. Given prescription for metformin 1000 mg p.o. with breakfast. 3. The patient was continued on her home medication of levothyroxine. DISCHARGE INSTRUCTIONS: The patient is instructed to follow up with Dr. Harding in postoperative appoin tment in 1 to 2 weeks. The patient was instructed to follow up with her primary care physician for diabetes management. Interdisciplinary plan of care was established for this patient. Plan of care was discussed with Dr Rohan Walker. Dictated By: FORREST LOU COIN PURSE FRAMER for LIONEL WALKER MD SR/NTS Conf#: [id number] DID#: [id number]
== END 2016-08-04 17:05 | disposition home or self-care (01) ==
LOC: SDS 08:25 → MS1 15:02
PROVIDERS: ADMIT Internal Medicine; ATTEND Surgery
DX: K43.0 Incisional hernia with obstruction, without gangrene (principal); E11.65 Type 2 diabetes mellitus with hyperglycemia; Z79.84 Long term (current) use of oral hypoglycemic drugs; E03.9 Hypothyroidism, unspecified; E66.9 Obesity, unspecified; Z68.33 Body mass index [BMI] 33.0-33.9, adult; Z90.49 Acquired absence of other specified parts of digestive tract
CPT/HCPCS: 14301; 14302; 49566; 49568; 49905; 80048; 80053; 82962; 83036; 85025; 88305; 96361; 96365; 96372; 96374; 96375; 96376; C1781; J0690; J1170; J1815; J1885; J2250; J2405; J2710; J3010; J7030; J7999; Z7500; Z7512; Z7610; G0378